=== PATIENT | female | born 1985 | race Caucasian/White ===

== ENCOUNTER 2024-04-06 12:04 | Emergency (ER) | payer OTHER, SELFPAY ==
[2024-04-06 12:15] VITALS: BP 121/81
--- NOTE | 2024-04-06 12:22 | ED.GENMED ---
ED Provider Triage
<DAVID Prakash - Last Filed: 04/06/24 12:26>
-
Patient seen by provider in Triage?: Seen in Triage
Attestation: A medical screening examination has been initiated by a qualified medical provider. Based on the assessment performed at this time, it has been determined that an emergent medical condition may exist and the patient has been informed
that further medical evaluation and possible additional diagnostic testing may be needed.
HPI:
Patient is a 38-year-old female who complains of left-sided chest pain and left pain for the past 1 month. Pt denies shortness of breath. pt has been taking Advil. non smoker. no history of blood clot .Pain with deep breath. Denies any lower
extremity swelling. Denies any injury. Denies any recent fever or chills. Denies any history of PE DVT.
GENERAL: Alert , in no apparent distress
EYE: No visual abnormalities.
NECK: Trachea midline
ENT: No visible abnormalities.
LUNGS: No acute respiratory distress
NEUROLOGICAL: Alert and oriented
SKIN: Skin intact. No visible changes.
MUSCULOSKELETAL: Moving extremities normally
PSYCH: Normal and appropriate interaction.
This is a medical evaluation conducted in person to initiate diagnostic evaluation and provide initial therapeutics. Please see further documentation by the treating clinician.
Labs ordered including cardiac troponin and D-dimer
History of Present Illness
<DAVID Prakash - Last Filed: 04/06/24 12:26>
General
Chief Complaint: Chest Pain
Time Seen by Provider: 04/06/24 16:14
<Rosina Mcarthur PA-C - Last Filed: 04/07/24 09:06>
General
Source: patient
Exam Limitations: none
Nursing documentation reviewed up to this point in time: agreed with
History of Present Illness
History of Present Illness:
This is a 38-year-old female with no past medical history presents emergency department today with left-sided chest pain pressure for the past month. Patient reports that she is not recall any inciting injury or event to the symptoms. She denies
shortness of breath, she denies syncopal episodes. She denies recent long distance travel, denies any redness or swelling in her lower extremities. She never had pain like this before. Patient reports that she is presenting today because
overnight, the discomfort kept her up at night. Patient states that the pain goes away with ibuprofen but she still has residual pressure after the ibuprofen is taken. Patient states believes that it might be musculoskeletal as she frequently
lifts her children. Patient denies any family history of cardiac disease. Patient denies any personal history of cardiac disease.
Review of Systems
<Rosina Mcarthur PA-C - Last Filed: 04/07/24 09:06>
Review of Systems
All Other Systems: ROS reviewed and negative except as documented in HPI and ROS
Phy Exam
<Rosina Mcarthur PA-C - Last Filed: 04/07/24 09:06>
Physical Exam
Physical Exam:
General: Patient is well appearing and in no acute distress; non-toxic
Skin: Warm and dry, no rashes or lesions
Head: Normocephalic, atraumatic
Eyes: Sclera non-icteric. EOMs intact. PERRLA.
Cardiac: Regular rate and rhythm, no murmurs, no tenderness palpation of the external chest wall
Peripheral Vascular: No lower extremity swelling or edema
Pulm: Normal respiratory effort, no wheezes, rales, rhonchi
Abdomen: No abdominal tenderness to palpation
Musculoskeletal: No tenderness palpation of the left shoulder, no chest pain or shoulder pain with passive range of motion of the left
Neuro: CN II-XII intact, no focal neurologic deficits.
Psychiatric: Appropriate mood and affect.
Scores
<Rosina Mcarthur PA-C - Last Filed: 04/07/24 09:06>
Heart Score for Chest Pain Patients
STEMI patient?: No
History: Slightly or Non-Suspicious
ECG: Normal
Age: </= 45 years
Risk Factors: No Risk Factors
Troponin: </= Normal Limit
Heart Score for Chest Pain Patients: 0
Heart Score Risk: 2.5% MACE over next 6 weeks
Course
<DAVID Prakash - Last Filed: 04/06/24 12:26>
Orders/Labs/Results
Orders:
Orders
04/06/24 12:06
EKG [Electrocardiogram (*1)] Urgent
Reason for Study: Chest Pain
EKG- Treatment ONCE
04/06/24 12:25
Beta HCG Quantitative Urgent
Comment: HCG QUANTITATIVE ADDED ON BY FLOOR 3:10PM 04-06-24
Complete Blood Count/With Diff Urgent
Comprehensive Metabolic Panel Urgent
DDimer [D-Dimer] Urgent
Troponin I Urgent
04/06/24 15:11
Add On- LAB Urgent
Tests Added?: hcg quantitative
CT Chest Pe Study Urgent
Comment:
Reason For Exam: sob pain with deep breath
04/06/24 18:17
Test Result ONCE
Abnormal Lab Results
04/06/24
12:25
WBC 3.5 L 10^3/uL
(4.8-10.8)
Absolute Neuts (auto) 1.3 L 10^3/uL
(1.4-6.5)
Neutrophils % 35.8 L %
(42.2-75.2)
D-Dimer 0.65 H ug/mlFEU
(0.00-0.50)
Alkaline Phosphatase 36 L U/L
(38-126)
04/06/24 12:25
04/06/24 12:25
Vital Signs
Initial and Last Documented VS:
Initial Vital Signs
Temp Pulse Resp BP Pulse Ox
97.9 F 69 20 121/81 100
04/06/24 12:15 04/06/24 12:15 04/06/24 12:15 04/06/24 12:15 04/06/24 12:15
Last Documented Vital Signs
Temp Pulse Resp BP Pulse Ox
98.1 F 68 14 114/86 100
04/06/24 13:59 04/06/24 19:45 04/06/24 19:45 04/06/24 19:05 04/06/24 19:45
Jenslt;Rosina Mcarthur PA-C - Last Filed: 04/07/24 09:06>
Orders/Labs/Results
Orders:
Orders
04/06/24 12:06
EKG [Electrocardiogram (*1)] Urgent
Reason for Study: Chest Pain
EKG- Treatment ONCE
04/06/24 12:25
Beta HCG Quantitative Urgent
Comment: HCG QUANTITATIVE ADDED ON BY FLOOR 3:10PM 04-06-24
Complete Blood Count/With Diff Urgent
Comprehensive Metabolic Panel Urgent
DDimer [D-Dimer] Urgent
Troponin I Urgent
04/06/24 15:11
Add On- LAB Urgent
Tests Added?: hcg quantitative
CT Chest Pe Study Urgent
Comment:
Reason For Exam: sob pain with deep breath
04/06/24 18:17
Test Result ONCE
Abnormal Lab Results
04/06/24
12:25
WBC 3.5 L 10^3/uL
(4.8-10.8)
Absolute Neuts (auto) 1.3 L 10^3/uL
(1.4-6.5)
Neutrophils % 35.8 L %
(42.2-75.2)
D-Dimer 0.65 H ug/mlFEU
(0.00-0.50)
Alkaline Phosphatase 36 L U/L
(38-126)
04/06/24 12:25
04/06/24 12:25
Vital Signs
Initial and Last Documented VS:
Initial Vital Signs
Temp Pulse Resp BP Pulse Ox
97.9 F 69 20 121/81 100
04/06/24 12:15 04/06/24 12:15 04/06/24 12:15 04/06/24 12:15 04/06/24 12:15
Last Documented Vital Signs
Temp Pulse Resp BP Pulse Ox
98.1 F 68 14 114/86 100
04/06/24 13:59 04/06/24 19:45 04/06/24 19:45 04/06/24 19:05 04/06/24 19:45
<Rosina Mcarthur PA-C - Last Filed: 04/07/24 09:06>
MDM/Problems Addressed
Differential Diagnosis Includes:
See below
MDM/Problems Addressed:
NUMBER AND COMPLEXITY OF PROBLEMS ADDRESSED AT THE ENCOUNTER
� Chronic conditions affecting care: n/a
� Acute Exacerbation and/or Progression of Chronic Illness: n/a
� Differential Diagnosis includes: Musculoskeletal sprain/strain, ACS, pulmonary embolism, pneumothorax, costochondritis
AMOUNT AND/OR COMPLEXITY OF DATA TO BE REVIEWED AND ANALYZED
� I performed an independent evaluation of and my interpretation is:
EKG: Normal sinus rhythm rate 68, no concerning ischemic changes
Laboratory Studies: D dimer 0.[address] scan
Other:
� Review of other/old records: No previous ER physician documentation to review, no discharge summaries to review
� Clinical information was obtained by an independent historian: n/a
� Prescriptions/Medications Considered but not given: n/a
� Further testing considered but not performed: n/a
RISK OF COMPLICATIONS AND/OR MORBIDITY OR MORTALITY OF PATIENT MANAGEMENT
� Social determinants of health affecting care: none
� Discussion with other providers: ER attending
� Escalation of care including admission/observation vs risk of discharge considered:
38-year-old female presents emergency department today with concerns of chest pain. Patient reports that this has been going on for the past month but she presented to the emergency department today because the pain discomfort kept her up at night.
She denies shortness of breath. Her D-dimer was elevated, will send for CAT scan of the chest to rule out PE. Suspect musculoskeletal etiology t to her symptoms versus costochondritis
<Rosina Mcarthur PA-C - Last Filed: 04/07/24 09:06>
*Critical Care Note
Total Time (30-74mins, 75-104mins- exclusive of procedures): Not Applicable
<Rosina Mcarthur PA-C - Last Filed: 04/07/24 09:06>
Update Note
Update Note:
7:12 PM--Patient signed out to Arlin Oneal NP who will follow up on case
ED Attending Note
<DAVID Prakash - Last Filed: 04/06/24 12:26>
-
Portions of this chart may have been created with voice recognition software.� Occasional wrong word or��sound alike� substitutions may have occurred due to the inherent limitations of voice recognition software.
Discharge Plan
Departure
Patient Disposition: Home (Routine Discharge)
Date of Disposition: 04/06/24
Time of Disposition: 19:40
Patient with high blood pressure during this ER visit?: No
Condition: Good
Discharge Problem:
Chest pain
Instructions: Costochondritis (DC), Acid reflux and GERD in adults, Chest Pain
Referrals:
UNKNOWN - PT DOES,NOT KNOW [Family Provider] -
Activity Restrictions/Additional Instructions:
As we discussed, you may be experiencing gastroesophageal reflux. Take Pepcid 10 mg twice a day for the next 2 to 3 weeks to see if it helps. Please follow up with your primary care provider.
Your CT scan of your chest did not show any evidence of blood clot or any other cardiopulmonary abnormality. Your EKG was normal.
PLEASE RETURN TO THE EMERGENCY DEPARTMENT SHOULD YOU EXPERIENCE AN ACUTE WORSENING OF YOUR SYMPTOMS, SHORTNESS OF BREATH, LIGHTHEADEDNESS, DIZZINESS, LOSS OF SENSATION, OF ANY OTHER SIGNS OR SYMPTOMS CONCERNING TO YOU.
Interventions
Interventions:
*Risk Screen - Suicide Last Done: 04/06/24 12:15
*General Assessment Last Done: 04/06/24 12:15
*Neglect/Abuse Screening Last Done: 04/06/24 12:15
ED- Fall Risk Assessment Last Done: 04/06/24 16:26
*ED COVID-19 Vaccine History Last Done: 04/06/24 16:26
*Nursing Disposition Last Done: 04/06/24 19:58
ED- Cardiac Assessment Last Done: 04/06/24 16:26
Discharge Date and Time
Discharge Date/Time: 04/06/24 19:58
Print Language: MONGOLIAN
[2024-04-06 12:33] LABS: % Basophils 1.4 % (0-2); % Eosinophils 4.8 % (0-6); % Immature Granulocytes 0.3 % (0-0.5); % Lymphocytes 49.2 % (20.5-51.1); % Monocytes 8.5 % (1.7-9.3); % Neutrophils 35.8 % (42.2-75.2); Absolute Basophils 0.1 10^3/uL (0-0.2); Absolute Eosinophils 0.2 10^3/uL (0-0.7); Absolute Lymphocytes 1.7 10^3/uL (1.2-3.4); Absolute Monocytes 0.3 10^3/uL (0.1-0.6); Absolute Neutrophils 1.3 10^3/uL (1.4-6.5); Hematocrit 37.4 % (37.0-47.0); Hemoglobin 12.9 g/dL (12.0-16.0); Mean Corp Hgb Conc. 34.5 g/dL (33.0-37.0); Mean Corpuscular Hgb 30.6 pg (27.0-31.0); Mean Corpuscular Volume 88.6 fL (81.0-99.0); Mean Platelet Volume 9.3 fL (7.4-10.4); Nucleated Red Blood Cells % 0 %; Platelet Count 199 10^3/uL (130-400); Red Blood Cell Count 4.22 10^6/uL (4.20-5.40); Red Cell Dist. Width 12.4 % (11.5-14.5); White Blood Cell Count 3.5 10^3/uL (4.8-10.8)
[2024-04-06 12:42] LABS: D-Dimer 0.65 ug/mlFEU (0.00-0.50)
[2024-04-06 12:58] LABS: ALT (SGPT) 15 U/L (0-35); AST (SGOT) 22 U/L (14-36); Albumin 4.5 g/dl (3.5-5.0); Alkaline Phosphatase 36 U/L (38-126); Blood Urea Nitrogen 13 mg/dl (7-17); Calcium 9.2 mg/dl (8.4-10.2); Carbon Dioxide 23 mmol/L (22-30); Chloride 105 mmol/L (98-107); Glucose 98 mg/dl (70-99); Potassium 4.2 mmol/L (3.5-5.1); Sodium 139 mmol/L (135-145); Total Bilirubin 0.6 mg/dl (0.2-1.3); Total Protein 6.9 g/dl (6.3-8.2); eGFR > 60.00
[2024-04-06 13:09] LABS: Troponin I < 0.012 ng/ml
[2024-04-06 13:59] VITALS: BP 116/77
[2024-04-06 16:21] VITALS: BP 125/76
[2024-04-06 16:24] LABS: Beta HCG Quantitative < 2.39 mIU/ml
[2024-04-06 16:26] VITALS: BMI 24.8
[2024-04-06 17:00] VITALS: BP 103/69
[2024-04-06 19:05] VITALS: BP 114/86
== END 2024-04-06 19:58 | disposition home or self-care (01) ==
LOC: EMR 12:04
PROVIDERS: Emergency Medicine; Nurse Practitioner; EMERGENCY PHYSICIAN Student in an Organized Health Care Education/Training Program
DX: R07.89 Other chest pain (principal); Z88.0 Allergy status to penicillin
CPT/HCPCS: 99284; 71275; 80053; 84484; 84702; 85025; 85379; 93005; Q9967